=== PATIENT | male | born 1995 | race Caucasian/White ===

== ENCOUNTER → 2017-08-19 | Outpatient (REF) ==
--- NOTE | 2017-08-19 11:51 | RADIOLOGY IMAGING REPORT ---
FACILITY: [facility] PATIENT NAME: Roosevelt Aldrich : 1995 MR: [id number] V: [id number] EXAM DATE: ORDERING PHYSICIAN: PRERNA BARRERA TECHNOLOGIST: Location: [facility] Patient: Roosevelt Aldrich : 1995 Visit/Account:[id number] Date of Sevice: 08/19/2017 CHEST SINGLE AP Indication: Preemployment screening Comparison: None. Findings: Lungs: Clear. Mediastinum/pulmonary vasculature: Heart size and pulmonary vasculature are normal. Bones/soft tissues: Normal. IMPRESSION: Clear lungs. Report Dictated By: Jose Maria Rothman at 08/19/2017 11:47 AM Report E-Signed By: Jose Maria Rothman at 08/19/2017 11:47 AM WSN:[email or web address]
== END ==
LOC: RAD 10:20
PROVIDERS: ATTEND Physician Assistant Medical
DX: Z02.1 Encounter for pre-employment examination (principal)
CPT/HCPCS: 71045

== ENCOUNTER → 2017-09-27 | Outpatient (CLI) | payer OTHER ==
--- NOTE | 2017-09-27 10:31 | RADIOLOGY IMAGING REPORT ---
[place] [facility] [place] NAME: Roosevelt Aldrich : 1995 MR: [id number] V: [id number] EXAM DATE: ORDERING PHYSICIAN: JEANCARLOS BARRIOS TECHNOLOGIST: Location: Patient: Roosevelt Aldrich : 1995 Visit/Account:[id number] Date of Sevice: 09/27/2017 Exam type: FOOT 3 VIEW LEFT History: Rolled left ankle during competition Comparison: None. Findings: There is a very subtle lucency traversing the base of the left fifth metatarsal. This could represen t a superimposed shadow versus a nondisplaced fracture. Otherwise no other evidence of fracture or d islocation seen. No radiopaque soft tissue foreign bodies identified IMPRESSION: 1. Very subtle lucency traversing the base of left fifth metatarsal. This could represent a superim posed shadow versus a nondisplaced fracture Report Dictated By: Kavya Lovell MD at 09/27/2017 10:25 AM Report E-Signed By: Kavya Lovell MD at 09/27/2017 10:27 AM WSN:[email or web address]
== END ==
LOC: RAD 09:55
PROVIDERS: ATTEND Family Medicine
DX: M79.672 Pain in left foot (principal)